=== PATIENT | male | born 1990 | race Two or more races ===

== ENCOUNTER 2018-06-02 01:21 | Emergency (ER) | payer BC ==
[~2018-06-02] VITALS: Ht 188 cm; Wt 95.3 kg
[2018-06-02 01:40] VITALS: BP 133/77
[2018-06-02] MEDS ORDERED: GELATIN SPONGE,ABSORBABLE 1 SPONGE SPONGE TP ONE ×2 (01:54→02:00)
== END 2018-06-02 02:49 | disposition home or self-care (01) ==
LOC: ER 01:21
DX: K91.841 Postprocedural hemorrhage of a digestive system organ or structure following other procedure (principal)